=== PATIENT | male | born 1960 | race Caucasian/White ===

== ENCOUNTER 2018-04-08 07:45 | Observation (INO) ==
--- NOTE | 2018-04-08 08:21 | ED ---
HPI General Chief Complaint: Chest Pain Stated Complaint: Chest pain/Sob/Dizziness Time Seen by Provider: 04/08/18 08:10 History of Present Illness HPI narrative: This patient complains of chest pain. It has been happening for 10 days now. He gets a left upper chest pressure. It lasts about 30-40 minutes and resolves. It is not exertional. He has history of cardiac stent placed in 2016. 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 Denies cough or fever or shortness of breath. No pleuritic symptoms. Patient is a smoker. He used to be a heavy alcohol drinker but quit 3 months ago. He has not done IV drugs in 16 years. No alleviating factors. No exacerbating factors. Severity is moderate Related Data Home Medications Medication Instructions Recorded Confirmed aspirin [Aspirin Childrens] 81 mg PO DAILY 04/08/18 04/08/18 atorvastatin 20 mg PO DAILY 04/08/18 04/08/18 omeprazole magnesium [Prilosec OTC] 20 mg PO DAILY 04/08/18 04/08/18 Allergies Allergy/AdvReac Type Severity Reaction Status Date / Time diatrizoate meglumine Allergy Intermediate Itching Unverified 04/08/18 07:57 gadobenic acid Allergy Intermediate Itching Unverified 04/08/18 07:57 gadodiamide Allergy Intermediate Itching Unverified 04/08/18 07:57 gadoteridol Allergy Intermediate Itching Unverified 04/08/18 07:57 iodixanol Allergy Intermediate Itching Unverified 04/08/18 07:57 iohexol Allergy Intermediate Itching Unverified 04/08/18 07:57 Review of Systems ROS: all other systems reviewed are negative [facility] Medical History Medical History Chronic alcohol abuse (Acute) Hepatitis C (Acute) Liver disease (Acute) Surgical History Surgical History H/O heart artery stent (Acute) History of hip surgery (Acute) Social History Social History Substance History: No History of Abuse and Active Abuse Second Hand Smoke Exposure: Yes Smoking Status: Current every day smoker Tobacco Type: Cigarettes How Often Do You Have a Drink Containing Alcohol: Monthly or less Recent Travel in [facility] within the Last 8 Weeks: No Recent Out of Country Travel within the Last 8 Weeks: No Substance Abuse Detail Marijuana: Substance Use Status: Active Route Used Substance Abuse: Inhalation Substance Frequency: daily Reason for Use: Calm Down and Feels Good Immunization History Tetanus Immunization: Unsure Exam Narrative Exam Narrative: GENERAL: Very thin well-developed patient in no apparent distress. SKIN: Focused skin assessment reveals no rash and nodules. Skin is Warm and dry. HEAD: Atraumatic. Normocephalic. EYES: Pupils equal and round. No scleral icterus. No injection or drainage. ENT: No nasal bleeding or discharge. Mucous membranes pink and moist. NECK: Trachea midline. No JVD. CARDIOVASCULAR: Regular rate and rhythm. No murmur appreciated. RESPIRATORY: No accessory muscle use. Clear to auscultation. Breath sounds equal bilaterally. GASTROINTESTINAL: Abdomen soft, non-tender, nondistended. Hepatic and splenic margins not palpable. MUSCULOSKELETAL: No obvious deformities. No clubbing. No cyanosis. No edema. NEUROLOGICAL: Awake and alert. No obvious cranial nerve deficits. Motor grossly within normal limits. Normal speech. PSYCHIATRIC: Appropriate mood and affect; insight and judgment normal. Course Initial Documented Vital Signs Temperature 98.2 F 04/08/18 07:54 Pulse Rate 66 04/08/18 07:54 Respiratory Rate 20 04/08/18 07:54 Blood Pressure 169/88 H 04/08/18 07:54 Pulse Oximetry 100 04/08/18 07:54 Last Documented Vital Signs Temperature 98.2 F 04/08/18 07:54 Pulse Rate 55 L 04/08/18 10:32 Respiratory Rate 17 04/08/18 10:32 Blood Pressure 133/70 04/08/18 10:32 Pulse Oximetry 99 04/08/18 10:33 Medical Decision Making [facility] Narrative Medical decision making narrative: This is a 58-year-old male with history of cardiac stent 2 years ago presents with 10 days of chest pressure intermittently. I gave him aspirin and initiated cardiac workup. His EKG does not show anything acute. ER workup is negative. He has had some atypical chest heaviness but does have CAD so he will be a 23-hour observation in the chest pain center to rule out cardiac cause of his symptoms. Medical Screen Exam Complete: Yes Emergency Medical Condition: Yes Differential Diagnosis Differential Diagnosis: Differential diagnosis includes CO, angina, pericarditis , pleurisy, GERD, anxiety. Medical Records Medical records reviewed: Yes I reviewed the patient's medical records. Lab Data Lab results reviewed: Yes I reviewed the patient's lab results. Result diagrams: 04/08/18 08:20 04/08/18 08:20 Lab Results 04/08/18 04/08/18 04/08/18 Range/Units 08:20 08:20 08:20 WBC 7.6 (4.0-11.0) th/mm3 RBC 4.65 (4.50-5.90) mil/mm3 Hgb 16.1 (13.0-17.0) gm/dL Hct 45.5 (39.0-51.0) % MCV 98.0 (80.0-100.0) fL MCH 34.7 H (27.0-34.0) pg MCHC 35.4 (32.0-36.0) % RDW 13.1 (11.6-17.2) % Plt Count 186 (150-450) th/mm3 MPV 8.5 (7.0-11.0) fL Neut % (Auto) 62.6 (16.0-70.0) % Lymph % (Auto) 23.9 (9.0-44.0) % [place] % (Auto) 8.2 H (0.0-8.0) % Eos % (Auto) 4.5 H (0.0-4.0) % Baso % (Auto) 0.8 (0.0-2.0) % Neut # (Auto) 4.8 (1.8-7.7) th/mm3 Lymph # (Auto) 1.8 (1.0-4.8) th/mm3 [place] # (Auto) 0.6 (0.0-0.9) th/mm3 Eos # (Auto) 0.3 (0.0-0.4) th/mm3 Baso # (Auto) 0.1 (0.0-0.2) th/mm3 WBC Differential . Differential Comment Auto diff final PT 11.3 (9.8-11.6) sec INR 1.1 Ratio APTT 29.2 (23.4-31.7) sec Sodium 139 (136-145) meq/L Potassium 4.2 (3.5-5.1) meq/L Chloride 104 (98-107) meq/L Carbon Dioxide 27.6 (21.0-32.0) meq/L Anion Gap 7 (5-15) meq/L BUN 22 H (7-18) mg/dL Creatinine 0.96 (0.60-1.30) mg/dL Estimated GFR 80 L (>89) mL/min Random Glucose 140 H (74-106) mg/dL Calcium 8.8 (8.5-10.1) mg/dL Total Bilirubin 0.7 (0.2-1.0) mg/dL AST 32 (15-37) U/L ALT 49 (12-78) U/L Alkaline Phosphatase 73 (45-117) U/L Total Creatine Kinase 160 (39-308) U/L CK-MB (CK-2) 5.2 H (0.5-3.6) ng/mL Troponin I Less than 0.02 L (0.02-0.05) ng/mL Total Protein 7.9 (6.4-8.2) g/dL Albumin 3.9 (3.4-5.0) g/dL Imaging Data Attestation: I personally reviewed and interpreted this imaging study as follows : Radiologist's impression: Chest X-Ray 04/08/18 08:16 CONCLUSION: No acute cardiopulmonary disease. ECG Data EKG Prior to Arrival: No Attestation: I personally reviewed and interpreted this ECG as follows: Prior ECG tracings: not available for review Interpretation: EKG shows a sinus rhythm in the 60s. He has no ST elevation. His CO interval and axis are normal Discharge Plan Discharge Disposition Patient Disposition: 30 Still Patient Discharge Details Diagnosis: Chest pain in adult Physicians Team ED Provider: Kahlil Mckinney Primary Care Provider: UNKNOWN, Rxs /Orders / Referrals /Forms Prescriptions: No Action atorvastatin 20 mg Tablet 20 mg PO DAILY RF: 0 aspirin [Aspirin Childrens] 81 mg Tablet,Chewable 81 mg PO DAILY RF: 0 omeprazole magnesium [Prilosec OTC] 20 mg Tablet,Delayed Release (Dr/Ec) 20 mg PO DAILY RF: 0 Discharge Instructions Patient Printed Instructions: Chest Pain (ED) Discharge Interventions Interventions: Vital Signs Last Done: 04/08/18 08:04 Status ED Status: With Doctor
[2018-04-08 08:39] LABS: Baso # (Auto) 0.1 th/mm3 (0.0-0.2); Baso % (Auto) 0.8 % (0.0-2.0); Eos # (Auto) 0.3 th/mm3 (0.0-0.4); Eos % (Auto) 4.5 % (0.0-4.0); Hematocrit 45.5 % (39.0-51.0); Hemoglobin 16.1 gm/dL (13.0-17.0); Lymph # (Auto) 1.8 th/mm3 (1.0-4.8); Lymph % (Auto) 23.9 % (9.0-44.0); Mean Corpuscular HGB Conc 35.4 % (32.0-36.0); Mean Corpuscular Hemoglobin 34.7 pg (27.0-34.0); Mean Platelet Volume 8.5 fL (7.0-11.0); Mono # (Auto) 0.6 th/mm3 (0.0-0.9); Mono % (Auto) 8.2 % (0.0-8.0); Neut # (Auto) 4.8 th/mm3 (1.8-7.7); Neut % (Auto) 62.6 % (16.0-70.0); Platelet Count 186 th/mm3 (150-450); Red Blood Count 4.65 mil/mm3 (4.50-5.90); Red Cell Distribution Width 13.1 % (11.6-17.2); White Blood Count 7.6 th/mm3 (4.0-11.0)
[2018-04-08 08:47] LABS: Activated Partial Thrombo Time 29.2 sec (23.4-31.7); INR 1.1 Ratio; Prothrombin Time 11.3 sec (9.8-11.6)
--- NOTE | 2018-04-08 08:53 | XR ---
EXAM DATE: 04/08/2018 8:44 AM EST AGE/SEX: 58 years / Male INDICATIONS: Chest pain. CLINICAL DATA: This is the patient's initial encounter. Patient reports that signs and symptoms have been present for 1 day and indicates a pain score of 6/10. MEDICAL/SURGICAL HISTORY: Cardiovascular disease. Hepatitis C. . Heart stent. [place] [facility] [place]. . FINDINGS: The lungs are clear without infiltrate, nodule, or mass. There is no appreciable pleural effusion for technique. Heart and mediastinum are unremarkable. CONCLUSION: No acute cardiopulmonary disease. Electronically signed by: Cameron Kilgore MD 04/08/2018 8:51 AM EST
[2018-04-08 08:56] LABS: Albumin 3.9 g/dL (3.4-5.0); Anion Gap 7 meq/L (5-15); Aspartate Aminotransferase 32 U/L (15-37); Blood Urea Nitrogen 22 mg/dL (7-18); Calcium 8.8 mg/dL (8.5-10.1); Carbon Dioxide 27.6 meq/L (21.0-32.0); Chloride 104 meq/L (98-107); Glomerular Filtration Rate 80 mL/min (>89); Glucose,Random 140 mg/dL (74-106); Potassium 4.2 meq/L (3.5-5.1); Sodium 139 meq/L (136-145)
[2018-04-08 08:57] LABS: Alanine Aminotransferase 49 U/L (12-78)
[2018-04-08 09:01] LABS: Alkaline Phosphatase 73 U/L (45-117); Creatine Kinase 160 U/L (39-308); Total Protein 7.9 g/dL (6.4-8.2)
[2018-04-08 09:13] LABS: Creatine Kinase MB 5.2 ng/mL (0.5-3.6)
[2018-04-08] MEDS ORDERED: Acetaminophen 500 MG Tablet PO PRN (13:01)
--- NOTE | 2018-04-08 14:02 | P.HPCA ---
History of Present Illness Primary Care Physician: [facility] Chief Complaint: Chest pain History of Present Illness: 58-year-old male with history of coronary artery disease, x1 cardiac stent, COPD , current smoker, GERD, and former EtOH abuse presents the emergency room for further evaluation of chest pain and dizziness. Onset chest pain 2 weeks. Location left anterior chest with radiation bilateral arms. Characterizes a "bad heartburn, burning sensation." Duration constant, states "pain only goes away when I sleep." Associated symptoms include intermittent nausea, dizziness , fever, and chills. No vomiting or diaphoresis. Endorses shortness of breath and dizziness with bending over, this is new to him. No precipitating or relieving factors. Endorses similar pain in the past prior to cardiac stent placed in 2016. Current smoker. Follows with a echometer engineer in [place]. No recent cardiac stress testing, reports most recent testing was "an ultrasound of all of my arteries." Also reports positional dizziness times 3 days. No change in appetite, recent travel, sick contacts, or injury. Came to ER today after "because my family wanted me to." Past cardiac testing 10/14/2015 Lexiscan Conclusion: 1. Abnormal examination with a reversible perfusion defect involving the anterior wall of the left ventricle suggesting stress-induced ischemia. 2. Hypokinesis of the septum. No other wall motion abnormal 5. Left ventricular ejection fraction is 54%. Of note, patient left against medical advice after completing Lexiscan, returning one month later. 11/09/2015 Cardiac catheterization (Dr. Awad) Impression: 1. Normal LV function. 2. Severe disease of RCA. 3. Excess. Teen of the proximal RCA. 4. No other significant disease. Social history Known coronary artery disease and hyperlipidemia. No known diabetes or hypertension. Current 1/2 pack day smoker, began smoking at age 8. Former alcoholic, quit drinking January 22, 2018. Occasional marijuana use. Endorses sedentary lifestyle. Works full-time. Lives with a roommate. Family history Noncontributory for early onset cardiovascular disease. - Diagnosis (1) Atypical chest pain (2) Tobacco use (3) History of coronary artery disease Review of Systems All other systems reviewed negative except as stated in HPI [facility] - History History Provided By: Patient - Medical History Medical History: Medical History (Last Updated 04/08/18 @ 14:16 by KEILA Hicks) Chronic alcohol abuse Coronary artery disease Hepatitis C Hyperlipidemia Liver disease - Surgical History Surgical History: Surgical History (Last Reviewed 04/08/18 @ 14:16 by KEILA Hicks) H/O heart artery stent History of hip surgery - Tobacco History Second Hand Smoke Exposure: Yes Tobacco Use In Past 30 Days: Yes Smoking Status: Current every day smoker Tobacco Type: Cigarettes Packs Per Day: 0.5 Years Smoked: 50 - Alcohol History How Often Do You Have a Drink Containing Alcohol: Monthly or less (Last reported drink 01/22/18 drinking 2 beers.) - Substance Use History Substance History: No History of Abuse, Active Abuse - Substance Use Type Marijuana Status: Active Route Used: Inhalation Frequency: daily Reason for Use: Calm Down, Feels Good - Travel History Recent Travel in the [place] Within the Last 8 Weeks: No Recent Travel Out of the Country Within the Last 8 Weeks: No - Immunization History Tetanus Immunization: Unsure Medications and Allergies Active Medications: Active Medications Acetaminophen (Tylenol) 500 mg PO Q4H PRN PRN Reason: HEADACHE Ondansetron HCl (Zofran Inj) 4 mg IV.PUSH Q6H PRN PRN Reason: NAUSEA Sodium Chloride (Ns Flush) 2 ml IV.FLUSH UNSCH PRN PRN Reason: FLUSH AFTER USING IV ACCESS Sodium Chloride (Ns Flush) 2 ml IV.FLUSH BID XIOMARA Allergies Allergy/AdvReac Type Severity Reaction Status Date / Time diatrizoate meglumine Allergy Intermediate Itching Unverified 04/08/18 07:57 gadobenic acid Allergy Intermediate Itching Unverified 04/08/18 07:57 gadodiamide Allergy Intermediate Itching Unverified 04/08/18 07:57 gadoteridol Allergy Intermediate Itching Unverified 04/08/18 07:57 iodixanol Allergy Intermediate Itching Unverified 04/08/18 07:57 iohexol Allergy Intermediate Itching Unverified 04/08/18 07:57 Home Medications Medication Instructions Recorded Confirmed Type aspirin [Aspirin Childrens] 81 mg PO DAILY 04/08/18 04/08/18 History atorvastatin 20 mg PO DAILY 04/08/18 04/08/18 History omeprazole magnesium [Prilosec OTC] 20 mg PO DAILY 04/08/18 04/08/18 History Exam Vital signs: Vital Signs 04/08/18 07:54 04/08/18 08:04 04/08/18 10:32 Temperature 98.2 F Pulse Rate 66 59 L 55 L Respiratory Rate 20 20 17 Blood Pressure 169/88 H 122/70 133/70 Pulse Oximetry 100 100 04/08/18 10:33 04/08/18 12:32 Temperature Pulse Rate 47 L Respiratory Rate 17 Blood Pressure 116/58 L Pulse Oximetry 99 Intake & Output 04/07/18 04/08/18 04/08/18 18:59 06:59 18:59 Weight 45.359 kg Narrative: GENERAL: Alert WN, WD, NAD, pleasant, cachectic, chronically ill-appearing, male who appears older than stated age HEAD: NC, AT NECK: Supple, no masses, trachea midline CV: RRR, without murmur, rub, gallop, no JVD, S1-S2 no S3-S4. No carotid bruits. Chest wall nontender to palpation. RESP: Diminished lungs throughout bilateral, no crackles, wheeze, rhonchi, symmetrical chest rise, nonlabored, able to speak in full sentences ABD: Soft, NT, ND, no masses, positive bowel tones, flat BACK: No scoliosis EXT: Pulses +2x4, no dependent edema MS: Normal tone x4 extremities, nontender, no obvious deformities, full range of motion NEURO: CN II through CN XII grossly intact, motor strength 5/5 PSYCH: A+O x3, pleasant affect, appropriate speech, mood, insight and judgment SKIN: Normal turgor, normal texture, no lesions, no rashes, even hair distribution Results 04/08/18 08:20 04/08/18 08:20 Cardiac Enzymes 04/08/18 04/08/18 Range/Units 08:20 11:30 AST 32 (15-37) U/L CK-MB (CK-2) 5.2 H (0.5-3.6) ng/mL Troponin I Less than 0.02 L Less than 0.02 L (0.02-0.05) ng/mL Coagulation 04/08/18 Range/Units 08:20 PT 11.3 (9.8-11.6) sec APTT 29.2 (23.4-31.7) sec CBC 04/08/18 Range/Units 08:20 WBC 7.6 (4.0-11.0) th/mm3 RBC 4.65 (4.50-5.90) mil/mm3 Hgb 16.1 (13.0-17.0) gm/dL Hct 45.5 (39.0-51.0) % Plt Count 186 (150-450) th/mm3 Neut # (Auto) 4.8 (1.8-7.7) th/mm3 Lymph # (Auto) 1.8 (1.0-4.8) th/mm3 [place] # (Auto) 0.6 (0.0-0.9) th/mm3 Eos # (Auto) 0.3 (0.0-0.4) th/mm3 Baso # (Auto) 0.1 (0.0-0.2) th/mm3 Comprehensive Metabolic Panel 04/08/18 Range/Units 08:20 Sodium 139 (136-145) meq/L Potassium 4.2 (3.5-5.1) meq/L Chloride 104 (98-107) meq/L Carbon Dioxide 27.6 (21.0-32.0) meq/L BUN 22 H (7-18) mg/dL Creatinine 0.96 (0.60-1.30) mg/dL Calcium 8.8 (8.5-10.1) mg/dL AST 32 (15-37) U/L ALT 49 (12-78) U/L Alkaline Phosphatase 73 (45-117) U/L Total Protein 7.9 (6.4-8.2) g/dL Albumin 3.9 (3.4-5.0) g/dL Intake and Output 04/07/18 04/08/18 04/08/18 22:59 06:59 14:59 Other: Weight 45.359 kg Patient Weight 04/09/18 06:59 Weight 45.359 kg - Imaging and Cardiology Imaging: Impressions Chest X-Ray 04/08/18 08:16 CONCLUSION: No acute cardiopulmonary disease. EKG interpretations - EKG EKG results cardiology: normal axis, normal QRS, normal ST/T - Dysrhythmias Sinus rhythms and dysrhythmias: sinus bradycardia (< 50 bpm) Caprini VTE Risk Assessment Caprini VTE Risk Assessment: No/Low Risk (score <= 1) Caprini Risk Assessment Model: Point Value = 1 Point Value = 2 Point Value = 3 Point Value = 5 Age 41-60 Minor surgery BMI > 25 kg/m2 Swollen legs Varicose veins or History of unexplained or recurrent spontaneous Oral contraceptives or hormone replacement Sepsis (< 1 month) Serious lung disease, including pneumonia (< 1 month) Abnormal pulmonary function Acute myocardial infarction Congestive heart failure (< 1 month) History of inflammatory bowel disease Medical patient at bed rest Age 61-74 Arthroscopic surgery Major open surgery (> 45 min) Laparoscopic surgery (> 45 min) Malignancy Confined to bed (> 72 hours) Immobilizing plaster cast Central venous access Age >= 75 History of VTE Family history of VTE Factor V Leiden Prothrombin [id number] Lupus anticoagulant Anticardiolipin antibodies Elevated serum homocysteine Heparin-induced thrombocytopenia Other congenital or acquired thrombophilia Stroke (< 1 month) Elective arthroplasty Hip, pelvis, or leg fracture Acute spinal cord injury (< 1 month) Prophylaxis Regimen: Total Risk Factor Score Risk Level Prophylaxis Regimen 0-1 Low Early ambulation 2 Moderate Order ONE of the following: *Sequential Compression Device (SCD) *Heparin 5000 units SQ BID 3-4 Higher Order ONE of the following medications: *Heparin 5000 units SQ TID *Enoxaparin/Lovenox 40 mg SQ daily (WT < 150 kg, CrCl > 30 mL/min) *Enoxaparin/Lovenox 30 mg SQ daily (WT < 150 kg, CrCl > 10-29 mL/min) *Enoxaparin/Lovenox 30 mg SQ BID (WT < 150 kg, CrCl > 30 mL/min) AND/OR *Sequential Compression Device (SCD) 5 or more Highest Order ONE of the following medications: *Heparin 5000 units SQ TID (Preferred with Epidurals) *Enoxaparin/Lovenox 40 mg SQ daily (WT < 150 kg, CrCl > 30 mL/min) *Enoxaparin/Lovenox 30 mg SQ daily (WT < 150 kg, CrCl > 10-29 mL/min) *Enoxaparin/Lovenox 30 mg SQ BID (WT < 150 kg, CrCl > 30 mL/min) AND *Sequential Compression Device (SCD) Assessment and Plan - Assessment (1) Atypical chest pain Code(s): R07.89 - Other chest pain Status: Acute Plan: Admitted to chest pain center. Continue ruling out ACS with 3 sets of EKGs and cardiac enzymes. First 2 EKGs and cardiac enzymes unremarkable. Will be seen and evaluated by Dr. Maylin Awad. Likely will proceed with cardiac testing later this evening or in a.m., believes he can walk on treadmill. Further disposition to follow after evaluation by echometer engineer. Requesting to go home as soon as possible. [address] Awad, plans for nuclear treadmill in morning. Patient agreeable to plan of care. (2) Tobacco use Code(s): Z72.0 - Tobacco use Status: Chronic Plan: Strongly encouraged and stressed importance of tobacco cessation. Instructed to quit smoking. Made aware of Tobacco Free [place] program available to him. (3) History of coronary artery disease Code(s): Z86.79 - Personal history of other diseases of the circulatory system Status: Chronic Plan: Continue aspirin and atorvastatin.
--- NOTE | 2018-04-08 17:00 | ECG ---
Date Performed: 04/08/2018 Time Performed: 12:24:05 PTAGE: 58 years EKG: SINUS BRADYCARDIA WITH SINUS ARRHYTHMIA BORDERLINE ECG Since PREVIOUS TRACING , no significant change noted PREVIOUS TRACIN04/08/2018 08.01 DOCTOR: Maylin Awad Interpretating Date/Time 04/08/2018 16:59:47
--- NOTE | 2018-04-08 17:01 | ECG ---
Date Performed: 04/08/2018 Time Performed: 08:01:54 PTAGE: 58 years EKG: Sinus rhythm NORMAL ECG Since PREVIOUS TRACING , no significant change noted PREVIOUS TRACIN11/09/2015 20.39 DOCTOR: Maylin Awad Interpretating Date/Time 04/08/2018 17:00:39
[2018-04-09 08:17] VITALS: BP 128/81; RESP 18; TEMP 97.7; O2SAT 98
[2018-04-09] MEDS ORDERED: Pantoprazole Sodium 20 MG DR Tablet PO SCH (09:00)
[2018-04-09 09:24] VITALS: PULSE 53
--- NOTE | 2018-04-09 15:00 | ECG ---
Date Performed: 04/08/2018 Time Performed: 15:01:30 PTAGE: 58 years EKG: SINUS BRADYCARDIA BORDERLINE ECG Since PREVIOUS TRACING , no significant change noted PREVIOUS TRACIN04/08/2018 12.24 DOCTOR: Maylin Awad Interpretating Date/Time 04/09/2018 14:59:16
== END 2018-04-09 09:18 | disposition left against medical advice (07) ==
LOC: NEDA 07:45 → NEPE 07:45 → NEDA 14:03 → NEPFCDU 14:04
PROVIDERS: ADMIT Internal Medicine Interventional Cardiology; ATTEND Internal Medicine Interventional Cardiology